=== PATIENT | female | born 1965 | race Caucasian/White ===

== ENCOUNTER → 2016-10-17 | Outpatient (CLI) | payer OTHER ==
--- NOTE | 2016-10-18 10:27 | KCIC ---
History: Routine screening. Technique: Bilateral digital mammographic routine views were obtained with CAD - computer aided detection. In addition to routine views, displaced views were obtained as well. Less breast tissue is included in a mammogram with implants. Comparison: September 16, 2014. Findings: Breast Tissue Density C : The breast tissue is heterogeneously dense. Scattered fibroglandular elements may obscure underlying pathology. There are no suspicious masses, microcalcifications or areas of architectural distortion. The implants appear grossly intact. Impression: No suspicious findings. BI-RADS Category 1: Negative. Normal interval followup. The patient will receive a letter with the results in the mail. Your mammogram demonstrates that you have dense breast tissue, which could hide abnormalities, and if you have other risk factors for breast cancer that have been identified, you might benefit from supplemental screening tests that may be suggested by your ordering physician. Dense breast tissue, in and of itself, is a relatively common condition. This information is not provided to cause undue concern, but rather to raise your awareness and to promote discussion with your physician regarding the presence of other risk factors, in addition to dense breast tissue. A report of your mammography results will be sent to you and your physician. You should contact your physician if you have any questions or concerns regarding this report. A mammogram does not have 100% sensitivity and therefore a negative imaging study should not delay further work up of a suspicious abnormality. Patient information is entered into the reminder system with a target due date for the next screening mammogram. The patient will receive a reminder. "Our facility is accredited by the [employer] Mammography [employer]." Electronically signed by: Pradeep Hinojosa III, MD (10/18/2016 10:24 AM) [id number]
== END | disposition home or self-care (01) ==
LOC: KCIC MAMMO 09:45
PROVIDERS: ATTEND Family Medicine
DX: Z12.31 Encounter for screening mammogram for malignant neoplasm of breast (principal)
CPT/HCPCS: G0202; 77067

== ENCOUNTER → 2017-10-23 | Outpatient (CLI) | payer OTHER | END | disposition home or self-care (01) | LOC: KCIC MAMMO 07:43 | DX: Z12.31 Encounter for screening mammogram for malignant neoplasm of breast (principal) | CPT/HCPCS: 77063; 77067 ==

== ENCOUNTER → 2017-10-31 | Outpatient (CLI) | payer OTHER | END | disposition home or self-care (01) | LOC: KCIC US 07:54 | DX: R92.8 Other abnormal and inconclusive findings on diagnostic imaging of breast (principal) | CPT/HCPCS: 76641 ==

== ENCOUNTER → 2019-11-12 | Outpatient (CLI) | payer OTHER ==
--- NOTE | 2019-11-12 18:43 | KCIC ---
Bilateral digital screening mammograms with 3-D tomosynthesis: Reason for examination: Routine screening. Comparison is made to previous studies dated back to 09/28/2015. Bilateral mammograms in CC and oblique projections were obtained with 2-D imaging and 3-D tomosynthesis imaging on a Siemens Inspiration unit and reviewed on the workstation. Interpretation was made with the benefit of CAD. The skin and nipples show no abnormalities. No abnormal axillary lymph nodes are seen. Bilateral saline breast implants are present and appear to be intact. The breast parenchyma shows scattered fatty and fibroglandular density. (Breast density: Category B.) There are some clustered calcifications seen posterior laterally in the left breast on cc view only approximately 2 cm lateral to the nipple. These may be vascular but recommend further evaluation with coned magnification views in CC and lateral projections. There are no other dominant masses, suspicious calcifications or architectural distortion. Benign calcifications are present. Impression: Calcifications seen posteriorly in the left breast on cc view only approximately 2 cm lateral to the nipple line. Recommend further evaluation with coned magnification views in CC and lateral projections. BI-RAD Category 0: Incomplete. Needs additional imaging evaluation. "Our facility is accredited by the [employer] Mammography Program." This patient's information has been entered into a reminder system for the patient to be notified with the results of her examination and a target date for the next mammogram. Electronically signed by: Linda Ahn MD (11/12/2019 6:40 PM) [email or web address]
== END | disposition home or self-care (01) ==
LOC: KCIC MAMMO 12:18
PROVIDERS: ATTEND Family Medicine
DX: Z12.31 Encounter for screening mammogram for malignant neoplasm of breast (principal); N64.89 Other specified disorders of breast
CPT/HCPCS: 77063; 77067

== ENCOUNTER → 2019-12-09 | Outpatient (CLI) | payer OTHER ==
--- NOTE | 2019-12-09 14:29 | KCIC ---
EXAM: Left breast diagnostic mammogram. HISTORY: 54-year-old female presents for evaluation of microcalcifications within the left breast demonstrated on a screening mammogram dated 11/12/2019. TECHNIQUE: Spot magnification views of the left breast are obtained COMPARISON: 11/12/2019 and 10/23/2017 BREAST PARENCHYMAL DENSITY: Level C - Heterogeneously dense. FINDINGS: There is a cluster of predominantly linear calcifications within the 5:00 position of the left breast centered approximately 6 cm from the nipple. These appear to be separate from adjacent vessels. There is no associated mass or architectural distortion. IMPRESSION: Microcalcification is within the 5:00 position of the left breast which are not clearly benign. Stereotactic guided biopsy is recommended for definitive diagnosis. RECOMMENDATION: BI-RADS Category 4: Suspicious abnormality. Stereotactic guided biopsy is recommended. These findings and recommendations were discussed with the patient and Rosa nurse for the referring physician, at 1400 hours on 12/09/2019. If your mammogram demonstrates that you have dense breast tissue, which could hide abnormalities, and if you have other risk factors for breast cancer that have been identified, you might benefit from supplemental screening tests that may be suggested by your ordering physician. Dense breast tissue, in and of itself, is a relatively common condition. This information is not provided to cause undue concern, but rather to raise your awareness and to promote discussion with your physician regarding the presence of other risk factors, in addition to dense breast tissue. A report of your mammography results will be sent to you and your physician. You should contact your physician if you have any questions or concerns regarding this report. Mammography is a sensitive method for finding small breast cancers, but it does not detect them all and is not a substitute for careful clinical examination. A negative mammogram does not negate a clinically suspicious finding and should not result in delay in biopsying a clinically suspicious abnormality. PQRS compliance statement - Patient information was entered into a reminder system with a target due date for the next mammogram. "Our facility is accredited by the [employer] Mammography [employer]." Electronically signed by: Delilah Yu MD (12/09/2019 2:26 PM) [email or web address]
== END | disposition home or self-care (01) ==
LOC: KCIC MAMMO 13:13
PROVIDERS: ATTEND Family Medicine
DX: R92.1 Mammographic calcification found on diagnostic imaging of breast (principal)
CPT/HCPCS: 77065

== ENCOUNTER → 2019-12-21 | Outpatient (CLI) | payer OTHER ==
[~2019-12-21] MED LIST: LIDOCAINE 2%/EPI 1:100,000 20 ML VIAL. INJ ONE
--- NOTE | 2019-12-21 15:15 | NUR ---
Called to Mammography room for pt that was not feeling well. Pt lying down, feet up, alert and oriented, BP 104/47. Spoke with pt who stated this has happened in the past. Monitored for 30 minutes, lying, sitting and standing, pt BP remained stable and pt without further s\s. 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 DARRICK MOSQUEDA
--- NOTE | 2019-12-21 16:06 | RAD ---
Examination: 1. Left breast detected biopsy. 2. Left postprocedure mammogram INDICATION: 54-year-old woman with left breast calcifications recommended for stereotactic biopsy. COMPARISON: Bilateral mammograms of 11/12/2019 and left diagnostic mammogram of 12/09/2019 TECHNIQUE AND FINDINGS: Informed consent was obtained and an appropriate procedural pause observed. Using standard sterile technique, stereotactic mammographic imaging guidance and local anesthesia with 1 percent lidocaine to the skin and 2 percent lidocaine with epinephrine deeper into the left breast tissue, multiple 9 gauge vacuum-assisted core biopsy samples were obtained using an Eviva biopsy needle introduced from a lateral approach. The specimen was radiographed and showed some of the targeted calcifications within it. Biopsy needle was therefore removed, a raymond-shaped biopsy marker deployed, and hemostasis ensured with direct breast compression for 10 minutes. The patient did have a brief episode of lightheadedness shortly after the procedure but recovered without difficulty and without requiring resuscitative measures. She was assessed and monitored by our nursing staff and had recovered back to baseline within a few minutes. . Post procedure instructions reviewed prior to her discharge. A digital postprocedure right mammogram showed satisfactory positioning of the biopsy marker at the site of targeted calcifications in the lower outer right breast. No postprocedure hematoma was evident. IMPRESSION: Successful stereotactic right breast biopsy of calcifications in the lower outer quadrant. Pathology results are pending. An addendum will be issued after pathology results become available. Electronically signed by: Shiela Norton MD (12/21/2019 4:04 PM) [id number]
--- NOTE | 2019-12-22 16:06 | PATHOLOGY ---
[facility] Accession Number: [id number] . 01 Material submitted: . breast - LEFT BREAST TISSUE. Modifiers: left . 01 Clinical history: . LEFT BREAST MICROCALCIFICATIONS . 02 Diagnosis: Breast tissue, left breast stereotactic needle biopsies: - DUCTAL CARCINOMA IN SITU, HIGH GRADE. SEE COMMENT. ([facility]PM:[facility] 12/22/2019) [facility] 12/22/2019 1539 Local . 02 Comment: Sections of the left breast stereotactic needle biopsy predominantly reveal fatty breast tissue. There are foci of high grade ductal carcinoma in situ of micropapillary and solid type. Tumor cells possess enlarged, rounded to ovoid nuclei containing prominent nucleoli. There is no comedo-type necrosis identified. 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 There is no evidence of invasive carcinoma. The case is also examined by Dr. Saez, who concurs with the diagnosis. (JPM:[facility] 12/22/2019) . 02 Electronically signed: . Miguel Angel Cotto MD, Pathologist NPI- [id number] . 01 Gross description: . The specimen is received in formalin, labeled "Kenyatta Jim, left breast". Received within a plastic cassette are multiple cores of fibrofatty tissue measuring 3.0 x 1.3 x 0.4 cm in aggregate dimensions. The specimen is submitted entirely in cassettes A1 through A3. The cold ischemic time is 10 minutes. The total formalin fixation time is 7 hours and 35 minutes. ([facility]; 12/21/2019) QAC/QAC 12/22/2019 1259 Local . 02 Pathologist provided ICD-10: D05.12 . 02 CPT . 967871 Specimen Comment: A courtesy copy of this report has been sent to [phone], [phone] Specimen Comment: [id number] Specimen Comment: Report sent to / DR MIRELES Performed at: 01 [facility] [address], [place] [id number] MD Stanislav Smith MD Phone: [phone] Performed at: [address] [facility] [address] [place], [place] [id number] MD Miguel Angel Cotto MD Phone: [phone]
== END | disposition home or self-care (01) ==
LOC: MAMMO 13:22
PROVIDERS: ATTEND Family Medicine
DX: C50.912 Malignant neoplasm of unspecified site of left female breast (principal); Z88.5 Allergy status to narcotic agent; Z88.8 Allergy status to other drugs, medicaments and biological substances; Z79.899 Other long term (current) drug therapy
CPT/HCPCS: 19081; 77022; 77065; 88305; C1713; J3490; 19085

== ENCOUNTER → 2020-05-03 | Outpatient (CLI) | payer OTHER ==
--- NOTE | 2020-05-03 16:40 | KCIC ---
EXAM: DUAL ENERGY X-RAY ABSORPTIOMETRY (DEXA). HISTORY: Postmenopausal screening. FINDINGS: The lowest measured T-score is -0.4 in the left hip, based on a bone mineral density of 0.8 93 g/cm^2. Refer to the worksheets for full detail. No comparison examinations are available. IMPRESSION: 1. Normal. Bone mineral density yields a T-score of -1.0 or greater. Fracture risk is low. 2. FRAX report: Not calculated. METHODOLOGY: Dual energy x-ray absorptiometry was performed to measure bone mineral density. The foll owing analysis is based on the 2019 Official Positions of the International Society for Clinical Dens itometry: Measurements of the hips and the average of L1-L4 are preferred. When the spine and/or hip cannot be feasibly measured or interpreted, or in the setting of hyperparathyroidism, distal radial bone minera l density may be measured. The lumbar spine T-score is based on the average bone mineral density of L1-L4. In the setting of art ifact or anatomic abnormality, some lumbar levels may be excluded, and the remaining levels used for calculation. A single lumbar level is not used for diagnosis, and if only a single level is available for assessment, another anatomic site will be used to assign a diagnosis. The hip T-score is based on the bone mineral density measurement of the femoral neck or total proxima l femur of either side, whichever is lowest. Bilateral mean values are not used for diagnosis. The forearm T-score is derived from 33% of the distal radius of the nondominant forearm. Electronically signed by: Delilah Yu MD (05/03/2020 4:37 PM) [email or web address]
== END ==
LOC: KCIC DEXA 13:19
PROVIDERS: ATTEND Internal Medicine Hematology & Oncology
DX: D05.12 Intraductal carcinoma in situ of left breast (principal)
CPT/HCPCS: 77080